=== PATIENT | male | born 1945 | race Caucasian/White ===

== ENCOUNTER 2016-07-22 14:10 | Outpatient (CLI) | payer MEDICARE | END 2016-07-22 14:11 | disposition home or self-care (01) | DX: D70.9 Neutropenia, unspecified (principal); M19.90 Unspecified osteoarthritis, unspecified site; Z79.899 Other long term (current) drug therapy ==

== ENCOUNTER 2017-04-22 14:51 | Outpatient (CLI) | payer MEDICARE ==
[2017-04-22 14:27] LABS: BASOPHILS % (AUTO) 1.5 %; EOSINOPHILS # (AUTO) 0.1 10^3/uL (0.0-0.7); EOSINOPHILS % (AUTO) 5.3 %; HCT - HEMATOCRIT 40.6 % (42.0-52.0); HGB - HEMOGLOBIN 13.8 g/dL (14.0-18.0); LYMPHOCYTES # (AUTO) 1.1 10^3/uL (1.5-3.5); LYMPHOCYTES % (AUTO) 48.7 %; MEAN CORPUSCULAR HEMOGLOBIN 27.5 pg (27.0-31.0); MEAN CORPUSCULAR HGB CONC 34.1 g/dL (32.0-36.0); MEAN CORPUSCULAR VOLUME 80.8 fL (80.0-94.0); MEAN PLATELET VOLUME 9.1 fL (7.4-11.4); MONOCYTES # (AUTO) 0.1 10^3/uL (0.0-1.0); MONOCYTES % (AUTO) 4.4 %; NEUTROPHILS # (AUTO) 0.9 10^3/uL (1.5-6.6); NEUTROPHILS % (AUTO) 40.1 %; NUCLEATED RED BLOOD CELLS AUTO 0.2 /100WBC; RED BLOOD COUNT 5.02 10^6/uL (4.70-6.10); RED CELL DISTRIBUTION WIDTH 15.8 % (12.0-15.0); UNCORRECTED WHITE BLOOD COUNT 2.3 x10^3/uL; WHITE BLOOD COUNT 2.3 x10^3/uL (4.8-10.8)
[2017-04-22 14:36] LABS: ALBUMIN/GLOBULIN RATIO 1.2 (1.0-2.2); CALCIUM 9.2 mg/dL (8.5-10.3); CREATININE 0.8 mg/dL (0.6-1.2); POTASSIUM 4.3 mmol/L (3.5-5.0)
[2017-04-22 15:16] LABS: PLATELET ESTIMATE, MANUAL DECREASED (<130,000) (NORMAL); PLATELET MORPHOLOGY NORMAL APPEARANCE (NORMAL)
== END 2017-04-22 14:52 | disposition home or self-care (01) ==
LOC: LAB.R 14:51
PROVIDERS: ATTEND Nurse Practitioner Primary Care
DX: D69.49 Other primary thrombocytopenia (principal); D70.9 Neutropenia, unspecified; Z79.899 Other long term (current) drug therapy
CPT/HCPCS: 80053; 84443; 85025

== ENCOUNTER 2017-12-18 09:05 | Outpatient (CLI) | payer MEDICARE | END 2017-12-18 09:06 | disposition home or self-care (01) | LOC: DI 09:05 | PROVIDERS: ATTEND Family Medicine | DX: R01.1 Cardiac murmur, unspecified (principal); R05 Cough; I51.7 Cardiomegaly; I35.0 Nonrheumatic aortic (valve) stenosis | CPT/HCPCS: 93306 ==

== ENCOUNTER 2019-08-16 08:59 | Outpatient (CLI) | payer MEDICARE ==
[2019-08-16 17:11] LABS: BASOPHILS % (AUTO) 1.1 %; EOSINOPHILS % (AUTO) 9.2 %; LYMPHOCYTES % (AUTO) 35.7 %; MEAN CORPUSCULAR HEMOGLOBIN 30.5 pg (27.0-31.0); MEAN CORPUSCULAR HGB CONC 34.7 g/dL (32.0-36.0); MEAN PLATELET VOLUME 12.6 fL (7.4-11.4); MONOCYTES % (AUTO) 2.7 %; NEUTROPHILS % (AUTO) 50.8 %; PLT - PLATELET COUNT 38 10^3/uL (130-450); RED BLOOD COUNT 4.59 10^6/uL (4.70-6.10); RED CELL DISTRIBUTION WIDTH 13.7 % (12.0-15.0)
[2019-08-16 17:26] LABS: ALBUMIN 3.8 g/dL (3.2-5.5); ALBUMIN/GLOBULIN RATIO 1.5 (1.0-2.2); ALKALINE PHOSPHATASE 40 IU/L (42-121); ALT ALANINE AMINOTRANSFERASE 20 IU/L (10-60); AST ASPARTATE AMINOTRANSFERASE 20 IU/L (10-42); BILIRUBIN,TOTAL 0.6 mg/dL (0.2-1.0); BUN - BLOOD UREA NITROGEN 17 mg/dL (6-20); CALCIUM 8.8 mg/dL (8.5-10.3); CARBON DIOXIDE - CO2 26 mmol/L (21-32); CHLORIDE 106 mmol/L (101-111); CHOL/HDL RATIO 2.8 (<5.0); CHOLESTEROL 165 mg/dL; CREATININE 0.7 mg/dL (0.6-1.2); GLUCOSE 108 mg/dL (70-100); HDL CHOLESTEROL 59 mg/dL; LDL CHOLESTEROL,CALCULATED 94 mg/dL; LDL/HDL RATIO 1.6 (<3.6); SODIUM 139 mmol/L (135-145); TOTAL PROTEIN 6.3 g/dL (6.7-8.2); VLDL CHOLESTEROL 12 mg/dL
[2019-08-16 17:59] LABS: WHITE BLOOD COUNT 1.9 x10^3/uL (4.8-10.8)
[2019-08-16 18:01] LABS: ABNORMAL LYMPHS % (MANUAL) 0 %; BAND NEUTROPHILS % (MANUAL) 0 %
[2019-08-16 18:08] LABS: BASOPHILS % (MANUAL) 1 %; DIFFERENTIAL COMMENT MANUAL DIFFERENTIAL; EOSINOPHILS # (MANUAL) 0.1 10^3/uL (0-0.7); LYMPHOCYTES # (MANUAL) 0.6 10^3/uL (1.5-3.5); LYMPHOCYTES % (MANUAL) 32 %; MONOCYTES # (MANUAL) 0.1 10^3/uL (0.0-1.0); PLATELET ESTIMATE, MANUAL DECREASED (<130,000) (NORMAL); PLATELET MORPHOLOGY NORMAL APPEARANCE (NORMAL); RBC MORPHOLOGY (MULTIPLE) NORMAL APPEARANCE (NORMAL)
== END 2019-08-16 09:00 | disposition home or self-care (01) ==
LOC: LAB 08:59 → LAB.S 09:00
PROVIDERS: ATTEND Internal Medicine
DX: D61.818 Other pancytopenia (principal); I10 Essential (primary) hypertension; D64.9 Anemia, unspecified; D72.819 Decreased white blood cell count, unspecified; J45.998 Other asthma; M19.011 Primary osteoarthritis, right shoulder; I38 Endocarditis, valve unspecified; R01.1 Cardiac murmur, unspecified
CPT/HCPCS: 36415; 80053; 80061; 83721; 84443; 85025

== ENCOUNTER 2019-12-09 10:10 | Outpatient (CLI) | payer MEDICARE ==
[2019-12-09 15:23] LABS: BASOPHILS % (AUTO) 0.4 %; EOSINOPHILS # (AUTO) 0.1 10^3/uL (0.0-0.7); EOSINOPHILS % (AUTO) 4.3 %; HGB - HEMOGLOBIN 13.7 g/dL (14.0-18.0); LYMPHOCYTES # (AUTO) 0.5 10^3/uL (1.5-3.5); LYMPHOCYTES % (AUTO) 20.2 %; MEAN CORPUSCULAR HEMOGLOBIN 29.8 pg (27.0-31.0); MEAN CORPUSCULAR HGB CONC 34.4 g/dL (32.0-36.0); MEAN CORPUSCULAR VOLUME 86.5 fL (80.0-94.0); MEAN PLATELET VOLUME 12.1 fL (7.4-11.4); MONOCYTES # (AUTO) 0.1 10^3/uL (0.0-1.0); MONOCYTES % (AUTO) 4.7 %; NEUTROPHILS # (AUTO) 1.8 10^3/uL (1.5-6.6); NEUTROPHILS % (AUTO) 69.6 %; PLT - PLATELET COUNT 43 10^3/uL (130-450); RED CELL DISTRIBUTION WIDTH 14.1 % (12.0-15.0); WHITE BLOOD COUNT 2.5 x10^3/uL (4.8-10.8)
[2019-12-09 16:59] LABS: PLATELET ESTIMATE, MANUAL DECREASED (<130,000) (NORMAL); PLATELET MORPHOLOGY NORMAL APPEARANCE (NORMAL); RBC MORPHOLOGY (MULTIPLE) NORMAL APPEARANCE (NORMAL)
[2019-12-09 17:02] LABS: DIFFERENTIAL COMMENT MANUAL=AUTO DIFF
== END 2019-12-09 10:11 | disposition home or self-care (01) ==
LOC: LAB.S 10:10
PROVIDERS: ATTEND Internal Medicine Hematology
DX: D69.6 Thrombocytopenia, unspecified (principal)
CPT/HCPCS: 36415; 85025

== ENCOUNTER 2019-12-14 08:33 | Outpatient (CLI) | payer MEDICARE ==
[2019-12-14 14:59] LABS: BASOPHILS % (AUTO) 0.4 %; EOSINOPHILS % (AUTO) 6.2 %; HGB - HEMOGLOBIN 14.1 g/dL (14.0-18.0); MEAN CORPUSCULAR HEMOGLOBIN 29.4 pg (27.0-31.0); MEAN CORPUSCULAR HGB CONC 33.6 g/dL (32.0-36.0); MEAN CORPUSCULAR VOLUME 87.5 fL (80.0-94.0); MONOCYTES % (AUTO) 5.8 %; NEUTROPHILS % (AUTO) 60.2 %; PLT - PLATELET COUNT 37 10^3/uL (130-450); WHITE BLOOD COUNT 2.3 x10^3/uL (4.8-10.8)
[2019-12-14 15:26] LABS: ABNORMAL LYMPHS % (MANUAL) 0 %; BAND NEUTROPHILS % (MANUAL) 0 %
[2019-12-14 15:50] LABS: EOSINOPHILS # (MANUAL) 0.2 10^3/uL (0-0.7); LYMPHOCYTES # (MANUAL) 0.8 10^3/uL (1.5-3.5); LYMPHOCYTES % (MANUAL) 34 %; MONOCYTES # (MANUAL) 0.1 10^3/uL (0.0-1.0)
[2019-12-14 15:51] LABS: DIFFERENTIAL COMMENT MANUAL DIFFERENTIAL; PLATELET ESTIMATE, MANUAL DECREASED (<130,000) (NORMAL); PLATELET MORPHOLOGY NORMAL APPEARANCE (NORMAL); RBC MORPHOLOGY (MULTIPLE) NORMAL APPEARANCE (NORMAL)
== END 2019-12-14 08:34 | disposition home or self-care (01) ==
LOC: LAB.S 08:33
PROVIDERS: ATTEND Internal Medicine Hematology
DX: D69.6 Thrombocytopenia, unspecified (principal)
CPT/HCPCS: 36415; 85025

== ENCOUNTER 2021-06-21 09:34 | Outpatient (CLI) | payer MEDICARE ==
--- NOTE | 2021-06-21 10:56 | XRAY Report ---
PROCEDURE: Wrist 2 View LT INDICATIONS: PAIN OF LEFT WRIST HAND TECHNIQUE: 2 views of the wrist were acquired. COMPARISON: X-ray left hand, 2 view, 06/13/2021. FINDINGS: Bones: No fractures or dislocations. No suspicious bony lesions. Ulnar negative variance. Widening of the scapholunate interval. Osteoarthritic changes are present, severe at radiocarpal and first car pometacarpal joint, moderate at the triscaphe joint. Small ossicles in the volar aspect of the wrist are note. Soft tissues: No suspicious soft tissue calcifications. IMPRESSION: 1. Severe osteoarthritis. 2. Ulnar negative variance. 3. Widening of scapholunate interval, likely secondary to ligamentous injury. Reviewed by: Bill Smith MD on 06/21/2021 10:54 AM [facility] Approved by: Bill Smith MD on 06/21/2021 10:54 AM [facility] Station ID: [id number]
--- NOTE | 2021-06-21 13:25 | XRAY Report ---
PROCEDURE: Hand 2 View LT INDICATIONS: PAIN OF LEFT WRIST TECHNIQUE: 2 views of the hand(s) acquired. COMPARISON: None FINDINGS: Bones: No fractures or dislocations. No suspicious bony lesions. Advanced degenerative change at t he base of the thumb. Widening between the scaphoid and lunate is consistent with scapholunate dissoc iation. Severe degenerative arthritis at 3 carpal joint. Subchondral cyst formation. Joint space obli teration between the lunate and radius. Prominent degenerative arthritis involving the first IP and s econd through fifth DIP joints. Soft tissues: No suspicious soft tissue calcifications. IMPRESSION: Advanced arthritic change of the hand and wrist. Associated scapholunate dissociation. Reviewed by: Henry Real MD on 06/21/2021 1:24 PM [facility] Approved by: Henry Real MD on 06/21/2021 1:24 PM [facility] Station ID: [id number]
== END 2021-06-21 09:35 | disposition home or self-care (01) ==
LOC: DI.S 09:34
PROVIDERS: ATTEND Nurse Practitioner Family
DX: M25.532 Pain in left wrist (principal); M19.032 Primary osteoarthritis, left wrist

== ENCOUNTER 2023-02-28 09:50 | Emergency (ER) | payer MEDICARE ==
--- OUTSIDE RECORDS SUMMARY | 2023-02-28 10:19 | EXTERNAL MEDICAL SUMMARY RPT | Continuity of Care Document ---
Author Name Unknown Address [address] [place] [address] Phone Organization [facility] Address [address] [place] [address] Phone Care Team Providers Care [employer] Name Role Phone Unavailable Unavailable Unavailable Reyes Melvin Pa-C Unavailable Unavailable Rowan Galvin, Amparo Unavailable Unavailable Pancho, Provider Unavailable Unavailable Rowan Galvin, Amparo Unavailable Unavailable Rowan Galvin, Amparo Unavailable Unavailable Medications date description facility 2023-02-13 00:00 lisinopril [facility] 2023-02-16 00:00 [facility]opril [facility] 2023-02-16 00:00 [facility]ril [facility] 2023-02-16 00:00 [facility]ril [facility] 2023-02-16 00:00 [facility]ril [facility] 2023-02-16 00:00 [facility]ril [facility] 2023-02-13 00:00 [facility]ril [facility] 2023-02-16 00:00 [facility]ril [facility] 2023-02-16 00:00 [facility]ril [facility] 2023-02-16 00:00 [facility]ril [facility] 2023-02-16 00:00 [facility] 2023-02-16 00:00 [facility]ril [facility] [place] 2023-02-13 00:00 [facility]ril [facility] 2023-02-16 00:00 [facility]opril [facility] [place] 2023-02-16 00:00 [facility]opril [facility] [place] 2023-02-16 00:00 [facility]opril [facility] [place] 2023-02-16 00:00 [facility]opril [facility] [place] 2023-02-16 00:00 [facility]opril [facility] [place] 2023-02-13 00:00 [facility]isinopril [facility] [place] 2023-02-16 00:00 [facility]opril [facility] [place] 2023-02-16 00:00 [facility]opril [facility] [place] 2023-02-16 00:00 [facility]opril [facility] [place] 2023-02-16 00:00 [facility]isinopril [facility] [place] 2023-02-16 00:00 lisinopril [facility] [place] Problems date description facility 2023-02-13 00:00 Pain in throat [facility] [place] 2023-02-13 00:00 Pain in throat [facility] [place] 2023-02-13 00:00 Pain in throat [facility] [place] 2023-02-13 00:00 Pain in throat [facility] [place] 2023-02-13 00:00 Pain in throat [facility] [place] 2023-02-13 00:00 Acute pharyngitis [facility] [place] 2023-02-13 00:00 Acute pharyngitis [facility] [place] 2023-02-13 00:00 Acute pharyngitis [facility] [place] 2023-02-13 00:00 Acute pharyngitis [facility] [place] 2023-02-13 00:00 Acute pharyngitis [facility] [place] 2023-02-13 00:00 Influenza with other respiratory manifestations [facility] [place] 2023-02-13 00:00 Influenza with other respiratory manifestations [facility] [place] 2023-02-13 00:00 Influenza with other respiratory manifestations [facility] [place] 2023-02-13 00:00 Influenza with other respiratory manifestations [facility] [place] 2023-02-13 00:00 Influenza with other respiratory manifestations [facility] [place] 2023-02-13 00:00 Influenza-like illness [facility] [place] 2023-02-13 00:00 Influenza-like illness [facility] [place] 2023-02-13 00:00 Influenza-like illness [facility] [place] 2023-02-13 00:00 Influenza-like illness [facility] [place] 2023-02-13 00:00 Influenza-like illness [facility] [place] 2023-02-13 00:00 Acute pharyngitis, unspecified [facility] [place] 2023-02-13 00:00 Acute pharyngitis, unspecified [facility] [place] 2023-02-13 00:00 Acute pharyngitis, unspecified [facility] [place] 2023-02-13 00:00 Acute pharyngitis, unspecified [facility] [place] 2023-02-13 00:00 Acute pharyngitis, unspecified [facility] [place] 2023-02-13 00:00 Influenza due to uni dentified influenza virus with other respiratory manifestations [facility] [place] 2023-02-13 00:00 Influenza due to uni dentified influenza virus with other respiratory manifestations [facility] [place] 2023-02-13 00:00 Influenza due to uni dentified influenza virus with other respiratory manifestations [facility] [place] 2023-02-13 00:00 Influenza due to uni dentified influenza virus with other respiratory manifestations [facility] [place] 2023-02-13 00:00 Influenza due to uni dentified influenza virus with other respiratory manifestations [facility] [place] 2023-02-13 00:00 Dysuria [facility] [place] 2023-02-13 00:00 Dysuria [facility] [place] 2023-02-13 00:00 Dysuria [facility] [place] 2023-02-13 00:00 Dysuria [facility] [place] 2023-02-13 00:00 Dysuria [facility] Procedures date description facility 2023-02-13 00:00 Visit Code Hold [facility] [place] 2023-02-13 00:00 Visit Code Hold [facility] [place] 2023-02-13 00:00 Visit Code Hold [facility] [place] 2023-02-13 00:00 Visit Code Hold [facility] [place] 2023-02-13 00:00 Visit Code Hold [facility] 2023-02-13 00:00 POC URINALYSIS DIP [facility] [place] 2023-02-13 00:00 POC URINALYSIS DIP [facility] [place] 2023-02-13 00:00 POC URINALYSIS DIP [facility] [place] 2023-02-13 00:00 POC URINALYSIS DIP [facility] [place] 2023-02-13 00:00 POC URINALYSIS DIP [facility] [place] 2023-02-13 00:00 POC SARCOV2&INF A&B&RSV AMP PB [facility] [place] 2023-02-13 00:00 POC SARCOV2&INF A&B&RSV AMP PB [facility] [place] 2023-02-13 00:00 POC SARCOV2&INF A&B&RSV AMP PB [facility] [place] 2023-02-13 00:00 POC SARCOV2&INF A&B&RSV AMP PB [facility] 2023-02-13 00:00 POC SARCOV2&INF A&B&RSV AMP PB [facility] Results/Labs test date facility value unit notes Social History date description facility 2023-02-13 00:00 Never smoker [facility] 2023-02-13 00:00 Never smoker [facility] [place] 2023-02-13 00:00 Never smoker [facility] 2023-02-13 00:00 Never smoker [facility] 2023-02-13 00:00 Never smoker [facility] Vital Signs date measurement value units 2023-02-13 00:00 BMI 23.68 kg/m2 2023-02-13 00:00 BP_diastolic 85 mmHg 2023-02-13 00:00 BP_systolic 165 mmHg 2023-02-13 00:00 heart_rate 80 /min 2023-02-13 00:00 height_metric 172.29 cm 2023-02-13 00:00 height_standard 67.83 in 2023-02-13 00:00 respiration_rate 16 /min 2023-02-13 00:00 temperature_metric 37.17 C 2023-02-13 00:00 temperature_standard 98.9 F 2023-02-13 00:00 weight_metric 70.03 kg 2023-02-13 00:00 weight_standard 154.4 lb
[2023-02-28] MEDS ORDERED: oxyCODONE 5 MG TABLET PO STA (10:55)
--- NOTE | 2023-02-28 12:27 | Ultrasound Report ---
PROCEDURE: Ext Limited Non Vascular INDICATIONS: ? rachel rectal abscess TECHNIQUE: Real-time scanning was performed of the perineal region, with image documentation. Color Doppler ultrasound was also utilized. COMPARISON: None. FINDINGS: Scanning is performed at the area of clinical concern. Posterior to the anus, there is a m ixed echogenicity focus that measures 14 x 10 x 13 mm. No abnormal vascularity can be seen. Further p osteriorly, there is an anechoic focus seen that measures 2.8 x 2.2 x 3.3 cm. IMPRESSION: 2 foci of fluid can be seen within the region of clinical concern adjacent to the anus. Differential diagnosis includes perianal abscess. Reviewed by: Rodolfo Casarez MD on 02/28/2023 11:26 AM [facility] Approved by: Rodolfo Casarez MD on 02/28/2023 11:26 AM [facility] Station ID: [id number]
[2023-02-28 13:15] LABS: BASOPHILS % (AUTO) 1.3 %; EOSINOPHILS # (AUTO) 0.1 10^3/uL (0.0-0.7); EOSINOPHILS % (AUTO) 3.3 %; HCT - HEMATOCRIT 34.3 % (42.0-52.0); HGB - HEMOGLOBIN 11.2 g/dL (14.0-18.0); LYMPHOCYTES # (AUTO) 0.9 10^3/uL (1.5-3.5); LYMPHOCYTES % (AUTO) 29.6 %; MEAN CORPUSCULAR HEMOGLOBIN 27.2 pg (27.0-31.0); MEAN CORPUSCULAR HGB CONC 32.7 g/dL (32.0-36.0); MEAN CORPUSCULAR VOLUME 83.3 fL (80.0-94.0); MONOCYTES # (AUTO) 0.1 10^3/uL (0.0-1.0); MONOCYTES % (AUTO) 2.7 %; NEUTROPHILS # (AUTO) 1.9 10^3/uL (1.5-6.6); NEUTROPHILS % (AUTO) 61.8 %; RED BLOOD COUNT 4.12 10^6/uL (4.70-6.10); RED CELL DISTRIBUTION WIDTH 15.3 % (12.0-15.0)
[2023-02-28 13:20] LABS: SLIDE REVIEW? Indicated
[2023-02-28 13:32] LABS: ALBUMIN 3.9 g/dL (3.2-5.5); ALBUMIN/GLOBULIN RATIO 1.1 (1.0-2.2); BILIRUBIN,TOTAL 0.8 mg/dL (0.2-1.0); CALCIUM 9.6 mg/dL (8.5-10.3); CREATININE 0.7 mg/dL (0.6-1.3); POTASSIUM 3.8 mmol/L (3.5-4.5); TOTAL PROTEIN 7.5 g/dL (6.4-8.9)
[2023-02-28 13:39] LABS: PLATELET ESTIMATE, MANUAL DECREASED (<130,000) (NORMAL); PLATELET MORPHOLOGY NORMAL APPEARANCE (NORMAL); PLT - PLATELET COUNT 17 10^3/uL (130-450); RBC MORPHOLOGY (MULTIPLE) NORMAL APPEARANCE (NORMAL); WBC MORPHOLOGY (MULTIPLE) NORMAL APPEARANCE (NORMAL)
--- NOTE | 2023-02-28 13:49 | ED Physician Documentation ---
PD HPI MALE - Stated complaint Stated Complaint: MALE - Chief complaint Chief Complaint: General - History obtained from History obtained from: Patient, Family - History of Present Illness Timing - onset: How many days ago (4) Timing - duration: Days (4) Timing - details: Gradual onset, Still present Associated symptoms: Other (painful to sit). 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 He is now unable to sit down. He does tell me that he had a hemorrhoid which he was able to push back in, and he has been using some hydrocortisone to this. He does not seem to be getting any relief and in fact his pain is so severe that he is only comfortable standing. He has not had this happen to him previously. He does have a history of thrombocytopenia and requires platelets for surgery. Review of Systems Constitutional: denies: Fever, Chills, Myalgias Ears: denies: Ear pain Nose: denies: Congestion Throat: denies: Dental pain / toothache Cardiac: denies: Chest pain / pressure Respiratory: denies: Dyspnea, Cough GI: denies: Abdominal Pain, Nausea, Vomiting, Constipation, Diarrhea : reports: Dysuria, Other (rectal pain). denies: Frequency Skin: denies: Rash, Lesions Musculoskeletal: denies: Neck pain, Back pain, Extremity pain Neurologic: denies: Generalized weakness, Focal weakness, Numbness PD PAST MEDICAL HISTORY - Past Medical History Past Medical History: Yes Cardiovascular: Hypertension, Valve disorder Respiratory: Asthma Neuro: None Endocrine/Autoimmune: None GI: GERD : None HEENT: None Psych: None Musculoskeletal: None Derm: None - Past Surgical History Past Surgical History: Yes Ortho: Knee replacement, Shoulder arthroplasty, Other Cardiovascular: Valve replacement - Present Medications Home Medications: Ambulatory Orders Medication Instructions Recorded Confirmed Acetaminophen [Tylenol] 650 mg PO Q6H PRN 02/28/23 02/28/23 Albuterol Sulf [Ventolin Hfa 1 - 2 puffs INH Q4HR PRN 02/28/23 02/28/23 Inhaler] Ibuprofen 400 mg PO Q6HR PRN 02/28/23 02/28/23 Lisinopril [Zestril] 10 mg PO DAILY 02/28/23 02/28/23 - Allergies Allergies/Adverse Reactions: Allergies Allergy/AdvReac Type Severity Reaction Status Date / Time Penicillins Allergy Unknown Verified 07/05/21 09:31 vancomycin Allergy Unknown Verified 07/05/21 09:31 - Social History Does the pt smoke?: No Smoking Status: Never smoker Does the pt drink ETOH?: No Does the pt have substance abuse?: No - Immunizations Immunizations are current?: Yes PD ED PE NORMAL - Vitals Vital signs reviewed: Yes (hypertensive) - General General: Alert and oriented X 3, No acute distress, Well developed/nourished, Other (77 y/o male in no distress standing in the room ) - HEENT HEENT: Atraumatic, PERRL, EOMI - Neck Neck: Supple, no meningeal sign, No bony TTP - Cardiac Cardiac: RRR, No murmur - Respiratory Respiratory: No respiratory distress, Clear bilaterally - Abdomen Abdomen: Soft, Non tender - Rectal Rectal: Other (There are 2 hemorrhoidal tags that are deflated. There are no external hemorrhoids inflamed or thrombosed. There are no internal thrombosed hemorrhoids there is generalized tenderness the prostate is not enlarged and symmetric and tender. ) - Back Back: No CVA TTP, No spinal TTP - Derm Derm: Normal color, Warm and dry, No rash - Extremities Extremities: No deformity, No edema - Neuro Neuro: Alert and oriented X 3, air brush decorator 2-12 intact, No motor deficit, No sensory deficit, Normal speech Eye Opening: Spontaneous Motor: Obeys Commands Verbal: Oriented GCS Score: 15 - Psych Psych: Normal mood, Normal affect Results - Vitals Vitals: Vital Signs - 24 hr 02/28/23 02/28/23 02/28/23 10:05 12:11 14:26 Temperature 36.8 C 36.6 C 37.4 C Heart Rate 82 80 81 Respiratory 16 16 15 Rate Blood Pressure 137/69 H 136/70 H 149/77 H O2 Saturation 99 99 100 02/28/23 02/28/23 16:00 18:00 Temperature 37.0 C 37.0 C Heart Rate 80 80 Respiratory 16 16 Rate Blood Pressure 140/78 H 138/78 H O2 Saturation 100 100 Oxygen O2 Source Room air - Labs Labs: Laboratory Tests 02/28/23 02/28/23 02/28/23 13:07 13:07 15:40 WBC 3.0 L RBC 4.12 L Hgb 11.2 L Hct 34.3 L MCV 83.3 MCH 27.2 MCHC 32.7 RDW 15.3 H Plt Count 17 L* Neut # (Auto) 1.9 Lymph # (Auto) 0.9 L Kleberg # (Auto) 0.1 Eos # (Auto) 0.1 Baso # (Auto) 0.0 Absolute Nucleated RBC 0.00 Nucleated RBC % 0.0 Manual Slide Review Indicated WBC Morphology NORMAL APPEARANCE Platelet Estimate DECREASED (<130,000) Platelet Morphology NORMAL APPEARANCE RBC Morph Micro Appear NORMAL APPEARANCE Sodium 135 Potassium 3.8 Chloride 101 Carbon Dioxide 27 Anion Gap 7.0 BUN 25 H Creatinine 0.7 Estimated GFR (MDRD) 109 Glucose 104 Calcium 9.6 Total Bilirubin 0.8 AST 9 L ALT 9 L Alkaline Phosphatase 64 Total Protein 7.5 Albumin 3.9 Globulin 3.6 Albumin/Globulin Ratio 1.1 Lipase 22 Urine Color YELLOW Urine Clarity CLEAR Urine pH 5.0 Ur Specific [place] 1.010 Urine Protein NEGATIVE Urine Glucose (UA) NEGATIVE Urine Ketones TRACE Urine Occult Blood NEGATIVE Urine Nitrite NEGATIVE Urine Bilirubin NEGATIVE Urine Urobilinogen 0.2 (NORMAL) Ur Leukocyte Esterase NEGATIVE Ur Microscopic Review NOT INDICATED Urine Culture Comments NOT INDICATED - Rads (name of study) CT pelvis with Relevant Findings:: Prelim report reviewed (Impression: Rim-enhancing fluid collection are seen within the prostate, which are attributed to abscess collections), EMP independent interpretation of test, See rad report U/S rachel-rectal Relevant Findings:: Prelim report reviewed (Impression: 2 foci of fluid can be seen within the region of the clinical concern adjacent to the anus. Differential diagnosis includes perianal abscess.), EMP independent interpretation of test, See rad report PD Medical Decision Making - ED course Complexity details: reviewed results, re-evaluated patient, considered differential, d/w patient, d/w family Reviewed Lab Results: We reviewed a complete blood count showing a low white blood cell count of 3000 hemoglobin and hematocrit were both low at 11.2 and 34.3 and the platelet count was critically low at 17,000.The white blood cell count is in the normal range for this patient on his priors. Hemoglobin and hematocrit were lower than normal for this patient but not in the transfusion range. His platelets are critically low and previously he usually runs in the 30,000 range.We did attempt to get a stool specimen on rectal exam but did not find stool in the vault. Procedural Risk Factors Specific to Patient: Surgery on this patient will require the use of a blood bank with adequate platelets. This is not something we have available at our facility. This patient will need transfer for surgery. ED course: 77-year-old male with severe rectal pain presents to the emergency department after 4 days he is in enough pain that he is standing in the emergency department. On examination I expected to find a thrombosed hemorrhoid and found no hemorrhoids in fact my rectal exam was remarkable only for severe pain I was not able to find bogginess to suggest presence of an abscess but significant tenderness there was no stool in the vault for testing for Hemoccult. I initially obtained an ultrasound demonstrating fluid collection my concern for perirectal abscess was high and a CT scan with contrast was performed showing multiple fluid collections within the prostate. At that point we requested a bed at [facility] in [place] as the patient has had his care given there previously. He does not have a urologist and has not had problems with his prostate previously. Dr. Shields at [facility] indicates the patient has not been seen at [facility] he did have access to his records and found that he has had a TAVR in December of last year and a visit to the veterinarian poultry and this is in December of this year. The patient is on Eliquis. At this point we are attempting to contact the [facility] to talk to urology. The urologist Dr. Pillo Hurt was able to call us back. He was able to review images and he recommended the patient not wait for bed availability as he has impressive prostate abscesses and will require surgical decompression. He will require a facility capable of administering platelets as well. We are thankful to her good friends up in [place] who are able to accept this patient in transfer with an available be d. I was able to speak with Dr. Pillo Stinson the urologist in [place] and to Malissa Hunter the hospitalist to accept the patient in transfer. Departure - Departure Disposition: 02 Transfer Acute Care [facility]osp Clinical Impression: Abscess of prostate, Thrombocytopenia Condition: Stable Forms: PCP List
[2023-02-28] MEDS ORDERED: iohexoL-300 100 ML VIAL IVP ONE (14:25)
[2023-02-28 14:29] VITALS: O2SAT 100
--- NOTE | 2023-02-28 14:39 | CT Report ---
PROCEDURE: PELVIS W INDICATIONS: characterization of fluid collection rectal pain CONTRAST: 100ml omni 300 TECHNIQUE: After the administration of intravenous contrast, a CT scan of the pelvis was performed. Images were recorded and evaluated at appropriate window settings. Reformats: axial MIP of the chest, coronal an d sagittal. For radiation dose reduction, the following was used: automated exposure control, adjustm ent of mA and/or kV according to patient size. COMPARISON: Correlation is made with the accompanying ultrasound. FINDINGS: Image quality: Excellent. Bowel and peritoneum: No bowel distension. No pathologic free fluid. A mild to moderate amount of sto ol is seen within the colon. Vessels: No infrarenal aortic aneurysm. Reproductive organs: There are rim-enhancing fluid collections seen within the prostate. The largest is seen inferiorly, measuring 3.1 x 2.5 cm in greatest axial dimension, with a craniocaudal extent of 3. Centimeters. There is an additional sizable fluid collection seen within the right prostate measu ring 2.8 x 2 cm in greatest axial dimension, with a craniocaudal extent of 2.4 cm. Bladder: No abnormal wall thickening, accounting for underdistention. Pelvic lymph nodes: No pelvic adenopathy by size criteria. Bones: No aggressive osseous abnormality. Other: No significant ventral or inguinal hernia. IMPRESSION: Rim enhancing fluid collections are seen within the prostate, which are attributed to abscess collect ions. Reviewed by: Rodolfo Casarez MD on 02/28/2023 1:37 PM [facility] Approved by: Rodolfo Casarez MD on 02/28/2023 1:37 PM [facility] Station ID: [id number]
[2023-02-28] MEDS ORDERED: SODIUM CHLORIDE 0.9% 500 ML IV STA (14:49)
[2023-02-28] MEDS ORDERED: levoFLOXacin 750 MG/150 ML 750 MG/150 ML BAG IV STA (15:37)
[2023-02-28 15:47] LABS: BILIRUBIN,URINE NEGATIVE (NEGATIVE); GLUCOSE, URINE (UA) NEGATIVE (NEGATIVE); KETONES,URINE (UA) TRACE mg/dL (NEGATIVE); LEUKOCYTE ESTERASE, URINE NEGATIVE (NEGATIVE); NITRITE,URINE NEGATIVE (NEGATIVE); OCCULT BLOOD,URINE NEGATIVE (NEGATIVE); PROTEIN,URINE NEGATIVE (NEGATIVE); UROBILINOGEN,URINE 0.2 (NORMAL) E.U./dL (NORMAL)
[2023-02-28 15:50] LABS: CLARITY,URINE CLEAR (CLEAR)
[2023-02-28] MEDS ORDERED: HYDROmorphone 1 MG/ML CARPUJECT IVP STA (16:12)
[2023-02-28] MEDS ORDERED: ONDANSETRON 4 MG/2 ML VIAL IVP STA (16:12)
[2023-02-28] MEDS ORDERED: SODIUM CHLORIDE 0.9% 1,000 ML IV STA (18:26)
[2023-02-28 18:52] VITALS: BP 138/78
== END 2023-02-28 19:14 | disposition short-term general hospital (02) ==
LOC: ED 09:50
DX: D69.6 Thrombocytopenia, unspecified (principal); N41.2 Abscess of prostate; I10 Essential (primary) hypertension
CPT/HCPCS: 36415; 72193; 76882; 80053; 81003; 83690; 85025; 96361; 96365; 96366; 96375; 99285; A9270; J1170; Q9967; 81001; 87086

== ENCOUNTER 2023-02-28 19:05 | Outpatient (CLI) | payer MEDICARE | END 2023-02-28 23:59 | disposition short-term general hospital (02) | LOC: EMS 19:05 | PROVIDERS: ATTEND Emergency Medicine | DX: N41.2 Abscess of prostate (principal); D61.818 Other pancytopenia | CPT/HCPCS: A0425; A0426 ==

== ENCOUNTER 2023-05-20 10:05 | Outpatient (CLI) | payer MEDICARE ==
[2023-05-20 10:21] LABS: BASOPHILS # (AUTO) 0.1 10^3/uL (0.0-0.1); BASOPHILS % (AUTO) 2.1 %; EOSINOPHILS # (AUTO) 0.1 10^3/uL (0.0-0.7); EOSINOPHILS % (AUTO) 4.9 %; HCT - HEMATOCRIT 36.9 % (42.0-52.0); HGB - HEMOGLOBIN 12.5 g/dL (14.0-18.0); LYMPHOCYTES # (AUTO) 0.7 10^3/uL (1.5-3.5); LYMPHOCYTES % (AUTO) 30.5 %; MEAN CORPUSCULAR HEMOGLOBIN 28.1 pg (27.0-31.0); MEAN CORPUSCULAR HGB CONC 33.9 g/dL (32.0-36.0); MEAN CORPUSCULAR VOLUME 82.9 fL (80.0-94.0); MONOCYTES # (AUTO) 0.1 10^3/uL (0.0-1.0); MONOCYTES % (AUTO) 2.5 %; NEUTROPHILS # (AUTO) 1.5 10^3/uL (1.5-6.6); NEUTROPHILS % (AUTO) 59.6 %; RED BLOOD COUNT 4.45 10^6/uL (4.70-6.10); RED CELL DISTRIBUTION WIDTH 15.4 % (12.0-15.0); WHITE BLOOD COUNT 2.4 x10^3/uL (4.8-10.8)
[2023-05-20 10:30] LABS: PLT - PLATELET COUNT 17 10^3/uL (130-450); SLIDE REVIEW? Indicated
[2023-05-20 11:15] LABS: PLATELET ESTIMATE, MANUAL DECREASED (<130,000) (NORMAL); PLATELET MORPHOLOGY NORMAL APPEARANCE (NORMAL); RBC MORPHOLOGY (MULTIPLE) NORMAL APPEARANCE (NORMAL); WBC MORPHOLOGY (MULTIPLE) NORMAL APPEARANCE (NORMAL)
== END 2023-05-20 10:06 | disposition home or self-care (01) ==
LOC: LAB 10:05
PROVIDERS: ATTEND Internal Medicine Hematology & Oncology
DX: D61.818 Other pancytopenia (principal)
CPT/HCPCS: 36415; 85025

== ENCOUNTER 2023-07-08 08:00 | Outpatient (CLI) | payer MEDICARE ==
--- NOTE | 2023-07-08 11:01 | XRAY Report ---
PROCEDURE: SI Joints 3+V INDICATIONS: SACROILIAC JOINT PAIN, LEFT TECHNIQUE: 3 views of the sacroiliac joints were acquired. COMPARISON: CT 02/28/2023 FINDINGS: Bones: Mild to moderate degenerative changes of the lower lumbar spine. Mild degenerative changes see n in the hip joints and sacroiliac joints, with periarticular sclerosis and irregularity. No bony ank ylosis or obvious erosions. Soft tissues: Pelvic calcifications likely phleboliths. IMPRESSION: Mild sacroiliac degenerative changes, with periarticular sclerosis and irregularity. No radiographic ankylosis or erosions. If there is high concern for further derangement, consider MRI evaluation. Reviewed by: Fitz Feldman MD on 07/08/2023 10:59 AM [facility] Approved by: Fitz Feldman MD on 07/08/2023 10:59 AM PST Station ID: [id number]
== END 2023-07-08 23:59 | disposition home or self-care (01) ==
LOC: DI.S 08:00
PROVIDERS: ATTEND Emergency Medicine
DX: M47.898 Other spondylosis, sacral and sacrococcygeal region (principal)

== ENCOUNTER 2023-07-22 09:10 | Emergency (ER) | payer MEDICARE ==
[2023-07-22 09:22] VITALS: BP 157/86; O2SAT 98
--- NOTE | 2023-07-22 09:59 | ED Physician Documentation ---
PD HPI BACK PAIN - Stated complaint Stated Complaint: HEAD PX/BACK PX - Chief complaint Chief Complaint: Back Pain - History obtained from History obtained from: Patient - Additional information Additional information: Pt is a 78 yo M presenting for evaluation of R lower back pain that radiates to R leg present for about 2 weeks. Pt was initially seen at the [facility]. Had an XR and told he has sacroilitis. Has tried anti inflammatories without significant improvement.Says some stretching exercises he has done have helped. Pain is worse when he is sitting on the R buttock and better with standing. No b owel/bladder incontinence, saddle anesthesia, numbness. No fevers, weakness, abdominal pain. No trauma or reported injury. Review of Systems Constitutional: denies: Fever Cardiac: denies: Chest pain / pressure Respiratory: denies: Dyspnea GI: denies: Abdominal Pain Musculoskeletal: reports: Back pain Neurologic: denies: Head injury PD PAST MEDICAL HISTORY - Past Medical History Cardiovascular: Hypertension, Valve disorder Respiratory: Asthma Neuro: None Endocrine/Autoimmune: None GI: GERD : None HEENT: None Psych: None Musculoskeletal: None Derm: None - Past Surgical History Past Surgical History: Yes Ortho: Knee replacement, Shoulder arthroplasty, Other Cardiovascular: Valve replacement - Present Medications Home Medications: Ambulatory Orders Medication Instructions Recorded Confirmed Acetaminophen [Tylenol] 650 mg PO Q6H PRN 02/28/23 07/22/23 Albuterol Sulf [Ventolin Hfa 1 - 2 puffs INH Q4HR PRN 02/28/23 07/22/23 Inhaler] Lisinopril [Zestril] 10 mg PO DAILY 02/28/23 07/22/23 Cyclobenzaprine [Flexeril] 5 - 10 mg PO TID PRN #15 tablet 07/22/23 Lidocaine Patch 5% [Lidoderm Patch] 1 patch TOP DAILY PRN #10 patch 07/22/23 - Allergies Allergies/Adverse Reactions: Allergies Allergy/AdvReac Type Severity Reaction Status Date / Time Penicillins Allergy Unknown Verified 07/22/23 09:22 vancomycin Allergy Unknown Verified 07/22/23 09:22 - Social History Does the pt smoke?: No Smoking Status: Never smoker Does the pt drink ETOH?: No Does the pt have substance abuse?: No - Immunizations Immunizations are current?: Yes PD ED PE NORMAL - General General: Alert and oriented X 3, No acute distress, Well developed/nourished - HEENT HEENT: Atraumatic, Moist mucous membranes, Pharynx benign - Neck Neck: Supple, no meningeal sign, No bony TTP - Cardiac Cardiac: RRR, Strong equal pulses - Respiratory Respiratory: No respiratory distress, Clear bilaterally - Abdomen Abdomen: Normal bowel sounds, Soft, Non tender, Non distended - Back Back: No spinal TTP, Other (Tenderness into right gluteus) - Derm Derm: Warm and dry - Extremities Extremities: No deformity, Normal ROM s pain, Other (Normal range of motion at right hip) - Neuro Neuro: Alert and oriented X 3, No motor deficit, No sensory deficit, Normal speech Results - Vitals Vitals: Oxygen O2 Source Room air PD Medical Decision Making - ED course ED course: Pt is a 78 yo M with R lower back pain radiating to R leg which is worse with pressure onto R buttock and better with standing. Good distal pulses, no abdominal pain, fever, weakness. Pt is ambulatory. No hip pain on ROM. Discussed trial of lidocaine patches with muscle relaxers along with continued stretching exercises as this has helped. Pt understands importance of close follow up and concerning symptoms to return for. Departure - Departure Disposition: 01 Home, Self Care Clinical Impression: Radicular low back pain Condition: Stable Instructions: Stretch Hamstring W Towel, Stretch Seated Hamstring, ED Sciatica Prescriptions: Cyclobenzaprine [Flexeril] 5 - 10 mg PO TID PRN #15 tablet PRN Reason: Spasms Lidocaine Patch 5% [Lidoderm Patch] 1 patch TOP DAILY PRN #10 patch PRN Reason: pain Comments: Your symptoms suggest a pinched nerve like sciatica. I have sent prescriptions for muscle relaxer and lidocaine patches to [facility] in [place]. Please continue with acetaminophen. I would also recommend some stretches to help with sciatica pain and have included some information regarding how to do these. I would recommend close follow-up with your primary care provider. Return to the ER with any worsening. Discharge Date/Time: 07/22/23 10:16
[2023-07-22] MEDS: LIDOCAINE PATCH 4% TOP STA (10:12)
== END 2023-07-22 10:16 | disposition home or self-care (01) ==
LOC: ED 09:10
DX: M54.16 Radiculopathy, lumbar region (principal)
CPT/HCPCS: 99282; 99283; A9270